=== PATIENT | female | born 1995 | race Caucasian/White ===

== ENCOUNTER 2020-06-14 14:08 | Emergency (ER) | payer OTHER ==
[~2020-06-14 14:08] MED LIST: NAPROXEN500 MG PO
[2020-06-14 16:13] LABS: BASOPHIL 0.5 % (0-2); EOSINOPHIL 0.4 % (0-5); HCT 36.5 % (37.0-47.0); HGB 12.8 g/dl (12.5-16.0); LYMPHOCYTE 24.3 % (15-48); MCH 32.8 pg (25.0-31.0); MCHC 35.1 g/dL (32.0-36.0); MCV 93.6 fL (78.0-100.0); MONOCYTE 9.1 % (0-12); MPV 11.3 fL (6.0-9.5); NEUTROPHIL 65.2 % (41-80); NRBC 0; PLT 233 K/uL (150-400); RDW 13.7 % (11.5-14.0); WBC 7.4 K/uL (4.0-10.5)
[2020-06-14 16:14] LABS: BILIRUBIN NEGATIVE (NEGATIVE); BLOOD TRACE-INTACT Ery/uL (NEGATIVE); CLARITY CLEAR (CLEAR); COLOR YELLOW (YELLOW); GLUCOSE (U) NORMAL (NORMAL); LEUKOCYTES NEGATIVE Leu/uL (NEGATIVE); NITRITE NEGATIVE (NEGATIVE); PROTEIN NEGATIVE (NEGATIVE); SPECIFIC GRAVITY 1.025 (1.001-1.030); pH 5.5 (5.0-9.0)
[2020-06-14 16:23] LABS: BACTERIA 1+; URINARY WBC RARE
[2020-06-14 16:27] LABS: ALBUMIN 3.7 g/dL (3.4-5.0); BILIRUBIN - TOTAL 0.7 mg/dL (0.2-1.0); BUN/CREAT RATIO (CALC) 12.5 RATIO; CREATININE 0.72 mg/dL (0.51-0.95); GLOBULIN (CALCULATION) 3.7 g/dL; TOTAL PROTEIN 7.4 g/dL (6.4-8.2)
[2020-06-14] MEDS ORDERED: MACROBID100 MG PO (20:13)
[2020-06-14] MEDS ORDERED: PRILOSEC20 MG PO (20:13)
[2020-06-14] MEDS ORDERED: BIAXIN500 MG PO (20:13)
[2020-06-14] MEDS ORDERED: AMOXICILLIN500 M2 PO (20:13)
== END 2020-06-14 21:10 | disposition home or self-care (01) ==
LOC: FER 14:08
PROVIDERS: Physician Assistant
DX: A04.8 Other specified bacterial intestinal infections (principal); N30.00 Acute cystitis without hematuria; N83.201 Unspecified ovarian cyst, right side
CPT/HCPCS: 36415; 76705; 80053; 81001; 83690; 85025; 87339; J7030; Q9967